=== PATIENT | female | born 1970 ===

== ENCOUNTER 2018-06-15 10:51 | Emergency (ER) | payer OTHER ==
[2018-06-15 10:58] VITALS: O2SAT 100
--- NOTE | 2018-06-15 11:14 | ED PDOC ---
HPI:STROKE - Time Time: 11:12 - Historian Historian: Patient - Chief Complaint Chief Complaint: Numbness - Onset Date: 06/13/18 Time: 14:00 Onset: Days (2) - Timing Timing: Improved - Location Locate left: Face - Radiation Radiation: Hand (left hand) - Severity of pain Maximum severity:: Mild Pain Scale:: 0 Severity Current: Mild Pain Scale:: 0 - Associated Symptoms Associated symptoms:: Visual (Blurry vision left eye) - Exacerbated by Exacerbated by:: Nothing - Relieved by Relieved by:: Nothing - TPA Positive for Contraindication: Yes Reason tPA is not being Administered: Sxs 48 hrs NIHSS Stroke Scale - How Severe is the Stroke Level of Consciousness: 0=Alert LOC to Questions: 0=Both comments correct LOC to commands: 0=Obeys both correctly Best Gaze: 0=Normal Visual: 0=No visual loss Facial: 0=Normal Motor Arm - Left: 0=No drift Motor Arm - Right: 0=No drift Motor Leg - Left: 0=No drift Motor Leg - Right: 0=No drift Limb Ataxia: 0=Absent Sensory: 0=Normal Best Language: 0=No aphasia Dysarthia: 0=Normal articulation Extinction & Inattention (Neglect): 0=Normal, no object Score: 0 rTPA Inclusion/Exclusion - Refusal of Treatment Patient Refused Treatment: No - Inclusion Criteria for Altepase Patient is 18 years or Older: Yes The Clinical Diagnosis of Ischemic Stroke That is Causing a Potentially Disabling Neurological Deficit: No Time of Onset is Well Established to be Less Than 270 Minute Before Treatment Would Begin: No Risk/Benefit Discussed With Patient/Family Member Present: No Past Medical History Vital Signs: Last Vital Signs Temp 98.5 F 06/15/18 10:58 Pulse 64 06/15/18 10:58 Resp 15 06/15/18 10:58 BP 157/74 H 06/15/18 10:58 Pulse Ox 100 06/15/18 10:58 - Medical History PMH: Anxiety - Surgical History Surgical History: Cholecystectomy - Family History Family History: States: Unknown Family Hx - Home Medications Home Medications: Ambulatory Orders Medication Instructions Recorded Alprazolam [Xanax] 1 mg PO PRN PRN 05/27/16 Naproxen [Naprosyn] 500 mg PO BID PRN #15 tablet 05/27/16 Nitrofurantoin Macrocrystals 100 mg PO BID #14 cap 05/27/16 [Macrobid] - Allergies Allergies/Adverse Reactions: Allergies Allergy/AdvReac Type Severity Reaction Status Date / Time fruit Allergy RASH Uncoded 05/27/16 20:58 Review of Systems ROS Statement: Except As Marked, All Systems Reviewed And Found Negative Neurological: Positive for: Numbness (Left facial and left pinky numbness) Psych: Positive for: Anxiety Physical Exam - Reviewed Nursing Documentation Reviewed: Yes Vital Signs Reviewed: Yes - Physical Exam Appears: Positive for: Non-toxic, No Acute Distress Head Exam: Positive for: ATRAUMATIC, NORMAL INSPECTION, NORMOCEPHALIC Skin: Positive for: Normal Color, Warm, DRY Eye Exam: Positive for: EOMI, Normal appearance, PERRL ENT: Positive for: Normal ENT Inspection Neck: Positive for: Normal, Painless ROM Cardiovascular/Chest: Positive for: Regular Rate, Rhythm Respiratory: Positive for: CNT, Normal Breath Sounds Gastrointestinal/Abdominal: Positive for: Normal Exam, Soft Back: Positive for: Normal Inspection Extremity: Positive for: Normal ROM Neurologic/Psych: Positive for: Alert, Oriented. Negative for: Motor/Sensory Deficits - Laboratory Results Result Diagrams: 06/15/18 11:55 06/15/18 11:55 - ECG O2 Sat by Pulse Oximetry: 100 Medical Decision Making Medical Decision Making: Discussed with Dr. Mariano, unlikely that sxs repsresent CVA. Can be followed as outpt. Will see pt in office Sunday. Disposition - Clinical Impression Clinical Impression: Anxiety - Patient ED Disposition Is Patient to be Admitted: No Counseled Patient/Family Regarding: Studies Performed, Diagnosis, Need For Followup, Rx Given - Disposition Referrals: Madelyn Mariano MD [Medical Doctor] - Disposition: Routine/Home Disposition Time: 13:02 Condition: FAIR Instructions: Anxiety, Adult (DC)
[2018-06-15 12:05] LABS: BASO % 0.5 % (0.0-2.0); EOS % 0.7 % (0.0-4.0); HEMOGLOBIN 11.9 g/dL (12.0-16.0); LYMPH # 1.6 K/uL (1.0-4.3); LYMPH % 39.5 % (20.0-40.0); MEAN CELL VOLUME 88.6 fl (81.0-99.0); MEAN CORPUSCULAR HEMOGLOBIN 29.8 pg (27.0-31.0); MEAN CORPUSCULAR HGB CONC 33.6 g/dL (33.0-37.0); MEAN PLATELET VOLUME 8.2 fl (7.2-11.7); MONO # 0.3 K/uL (0.0-0.8); MONO % 7.6 % (0.0-10.0); NEUT # 2.1 K/uL (1.8-7.0); NEUT % 51.7 % (50.0-75.0); RBC 3.99 Mil/uL (3.80-5.20); RED CELL DISTRIBUTION WIDTH 12.3 % (11.5-14.5); WHITE BLOOD COUNT 4.1 K/uL (4.8-10.8)
--- NOTE | 2018-06-15 12:07 | CT ---
Date of service: 06/15/2018 PROCEDURE: CT HEAD WITHOUT CONTRAST. HISTORY: Left-sided facial numbness. COMPARISON: 737.27 TECHNIQUE: Axial computed tomography images were obtained through the head/brain without intravenous contrast. Supplemental Coronal and Sagittal projections created and reviewed. Radiation dose: Total exam DLP = <inf_radiation_dlp> mGy-cm. This CT exam was performed using one or more of the following dose reduction techniques: Automated exposure control, adjustment of the mA and/or kV according to patient size, and/or use of iterative reconstruction technique. FINDINGS: HEMORRHAGE: No intracranial hemorrhage. BRAIN: No mass effect or edema. No atrophy or chronic microvascular ischemic changes. VENTRICLES: Unremarkable. No hydrocephalus. CALVARIUM: Unremarkable. PARANASAL SINUSES: Unremarkable as visualized. No significant inflammatory changes. MASTOID AIR CELLS: Unremarkable as visualized. No inflammatory changes. OTHER FINDINGS: None. IMPRESSION: No acute intracranial abnormalities. No significant findings to account for the clinical presentation.
[2018-06-15 12:16] LABS: ALB/GLOB RATIO 1.3 (1.0-2.1); ALT/SGPT 21 U/L (9-52); AST/SGOT 18 U/L (14-36); BLOOD UREA NITROGEN 13 mg/dl (7-17); CALCIUM 9.3 mg/dL (8.4-10.2); GFR NON-AFRICAN AMERICAN > 60
[2018-06-15 13:21] VITALS: BP 148/72; PULSE 71; RESP 16; TEMP 98.3
--- NOTE | 2018-06-16 10:17 | CARD ---
APPROVED REPORT Date of service: 06/15/2018 EKG Measurement Heart [id number] <Conclusion> Sinus bradycardia Otherwise normal ECG
== END 2018-06-15 13:15 | disposition home or self-care (01) ==
LOC: H.ER 10:51
DX: F41.9 Anxiety disorder, unspecified (principal)